=== PATIENT | female | born 1995 | race Caucasian/White ===

== ENCOUNTER → 2020-10-22 | Outpatient (CLI) | payer OTHER | LOC: EXRD 10:01 | DX: R10.9 Unspecified abdominal pain (principal); K80.80 Other cholelithiasis without obstruction | CPT/HCPCS: 76700 ==

== ENCOUNTER → 2020-10-22 | Outpatient (CLI) | payer OTHER | LOC: RAD 10:48 | DX: R10.9 Unspecified abdominal pain (principal) | CPT/HCPCS: 74018 ==